=== PATIENT | female | born 1980 | race Caucasian/White ===

== ENCOUNTER 2022-04-09 10:30 | Outpatient (CLI) | payer OTHER, SELFPAY ==
[2022-04-09 19:25] LABS: Basophils Percent Auto 0.3 % (0.2-1.2); Eosinophils Absolute Auto 0.1 K/mm3 (0-0.3); Hematocrit 40.8 % (37.0-47.0); Hemoglobin 13.1 g/dL (12.0-15.0); Immature Granulocyte Absolute 0.02 K/mm3 (0.00-0.031); Immature Granulocyte Percent A 0.3 % (0-0.5); Lymphocytes Absolute Auto 1.64 K/mm3 (0.9-3.2); Lymphocytes Percent Auto 21.1 % (18.3-44.2); Mean Corpuscular HGB Conc 32.1 g/dl (32-36); Mean Corpuscular Hemoglobin 28.5 pg (26-34); Mean Corpuscular Volume 88.7 fl (80-100); Mean Platelet Volume 9.9 fl (7.4-10.4); Monocytes Absolute Auto 0.4 K/mm3 (0.1-0.6); Monocytes Percent Auto 5.1 % (2.6-8.5); Neutrophils Absolute Auto 5.6 K/mm3 (1.3-6.7); Neutrophils Percent Auto 72.2 % (45.5-73.1); Platelet Count Result 224 k/mm3 (150-375); Red Cell Distribution Width 13.2 % (11.5-14.5); White Blood Count 7.8 K/mm3 (4.5-10.0)
[2022-04-09 19:26] LABS: Alanine Aminotransferase 15 U/L (6-35); Albumin Level 4.3 g/dL (3.5-5.1); Alkaline Phosphatase 79 U/L (38-126); Anion Gap 8 mmol/L (8-16); Aspartate Amino Transferase 21 U/L (14-36); Bilirubin,Total 0.3 mg/dL (0.2-1.3); Blood Urea Nitrogen 12 mg/dL (7-17); Calcium 9.2 mg/dL (8.4-10.2); Carbon Dioxide 22 mmol/L (22-30); Chloride 108 mmol/L (98-107); Cholesterol 234 mg/dL (0-200); Estimated Glomerular Filt Rate > 60; Glucose 104 mg/dL (65-110); HDL Direct 45 mg/dL; Potassium 4.2 mmol/L (3.4-5.0); Sodium 138 mmol/L (137-145); Triglycerides 201 mg/dL (<150)
[2022-04-09 19:32] LABS: Vitamin D 25 Hydroxy 75.1 ng/mL
[2022-04-09 19:40] LABS: LDL Cholesterol Direct 137 mg/dL
== END 2022-04-09 10:31 | disposition home or self-care (01) ==
PROVIDERS: PCP Obstetrics & Gynecology; Visit Provider Obstetrics & Gynecology
DX: Z00.00 Encounter for general adult medical examination without abnormal findings (principal)
CPT/HCPCS: 36415; 80053; 80061; 82306; 84443; 85025

== ENCOUNTER → 2022-07-20 15:14 | Outpatient (CLI) | payer OTHER, SELFPAY ==
--- NOTE | ~2022-07-20 | MM_ITS ---
EXAMINATION: MM screening shady BI w max HISTORY: Screening mammogram, family history of breast cancer in her mother. TECHNIQUE: Craniocaudal and mediolateral oblique 3-D tomosynthesis images were obtained and synthetic 2-D images were generated. CAD analysis was submitted and interpreted. COMPARISON: None, baseline BREAST PARENCHYMAL COMPOSITION: There are scattered areas of fibroglandular density. FINDINGS: RIGHT BREAST: There is focal asymmetry in the posterior third of the upper outer quadrant of the [address]. LEFT BREAST: An asymmetry is present in the middle third of the central breast just below the nipple axis 7 cm from the nipple on the mediolateral oblique view. IMPRESSION: 1. Bilateral breast findings as described above. 2. Additional mammographic views and possible breast ultrasound are recommended. BI-RADS Category 0: Incomplete: Needs additional imaging evaluation. Reviewed, dictated and finalized at location A. IMPRESSION: 1. Bilateral breast findings as described above. 2. Additional mammographic views and possible breast ultrasound are recommended . BI-RADS Category 0: Incomplete: Needs additional imaging evaluation.
== END ==
PROVIDERS: PCP Nurse Practitioner; Visit Provider Obstetrics & Gynecology
DX: Z12.31 Encounter for screening mammogram for malignant neoplasm of breast (principal)
CPT/HCPCS: 77063; 77067

== ENCOUNTER → 2022-08-08 09:00 | Outpatient (CLI) | payer OTHER, SELFPAY ==
--- NOTE | ~2022-08-08 | MMUS_ITS ---
EXAMINATION: MM diagnostic shady BI w max, US breast BI limited HISTORY: Follow-up breast asymmetries TECHNIQUE: Additional 3-D tomosynthesis images of the breasts were performed and synthetic 2-D images were generated. CAD analysis was submitted and interpreted. High resolution limited bilateral breast ultrasound was performed. COMPARISON: 07/20/2022 BREAST PARENCHYMAL COMPOSITION: Breast composed of scattered areas of fibroglandular density FINDINGS: MAMMOGRAPHIC FINDINGS: The focal asymmetry in the upper outer quadrant of the right breast is less dense with spot compressi on views. No discrete mass identified. There is a 4 mm subareolar mass on medial lateral view which i s not confirmed on CC view.. ULTRASOUND: Limited right breast ultrasound: Normal heterogeneous echotexture without focal solid or cystic mass. Limited left breast ultrasound: Normal heterogeneous echotexture without focal solid or cystic mass. IMPRESSION: 1. Focal benign-appearing 4 mm mass in the left breast in the subareolar location. No sonographic cor relate is identified. This is likely benign. No evidence for malignancy in the right breast. 2. Recommend 6 month follow-up diagnostic left mammogram. BI-RADS category 3, probably benign findings. Reviewed, dictated and finalized at location A. IMPRESSION: 1. Focal benign-appearing 4 mm mass in the left breast in the subareolar locati on. No sonographic correlate is identified. This is likely benign. No evidence for malignancy in the right breast. 2. Recommend 6 month follow-up diagnostic left mammogram. BI-RADS category 3, probably benign findings.
== END ==
PROVIDERS: PCP Nurse Practitioner; Visit Provider Obstetrics & Gynecology
DX: R92.8 Other abnormal and inconclusive findings on diagnostic imaging of breast (principal); N63.42 Unspecified lump in left breast, subareolar
CPT/HCPCS: 76642; 77062; 77066; G0279

== ENCOUNTER → 2023-02-05 14:15 | Outpatient (CLI) | payer OTHER, SELFPAY ==
--- NOTE | ~2023-02-05 | MMUS_ITS ---
EXAMINATION: MM diagnostic shady LT w max, US breast LT limited HISTORY: Follow-up of 4 mm mass left subareolar area TECHNIQUE: Full-field ML, MLO and CC and spot ML 3-D tomosynthesis images of left breast were perform ed and synthetic 2-D images were generated. CAD analysis was submitted and interpreted. High resoluti on targeted lateral subareolar breast ultrasound was performed. COMPARISON: 08/08/2022 diagnostic bilateral mammogram and bilateral Limited breast ultrasound examina tion BREAST PARENCHYMAL COMPOSITION: There are scattered areas of fibroglandular density. FINDINGS: MAMMOGRAPHIC FINDINGS: Approximately 4 x 5 mm circumscribed mass is suggested in the lateral subareolar area approximately 2 .6 cm deep to the nipple (spot left MLO Tomosynthesis image 37/84). ULTRASOUND: 3:00 3 cm from nipple: Approximately 4.2 mm circumscribed hypoechoic lesion without internal vascular ity or posterior shadowing is noted. IMPRESSION: 1. Probable benign finding at 3:00 2. Six-month diagnostic left mammogram and left breast ultrasound follow-up are recommended BI-RADS category 3, probably benign findings. Reviewed, dictated and finalized at location A. IMPRESSION: 1. Probable benign finding at 3:00 2. Six-month diagnostic left mammogram and left breast ultrasound follow-up are recommended BI-RADS category 3, probably benign findings.
== END ==
PROVIDERS: PCP Obstetrics & Gynecology; Visit Provider Obstetrics & Gynecology
DX: N63.20 Unspecified lump in the left breast, unspecified quadrant (principal); R92.8 Other abnormal and inconclusive findings on diagnostic imaging of breast
CPT/HCPCS: 76642; 77061; 77065; G0279

== ENCOUNTER → 2023-09-10 14:27 | Outpatient (CLI) | payer OTHER, SELFPAY ==
--- NOTE | ~2023-09-10 | MMUS_ITS ---
EXAMINATION: MM diagnostic shady BI w max, US breast BI limited HISTORY: Six-month follow-up for probably benign left breast mass TECHNIQUE: Craniocaudal, mediolateral, and mediolateral oblique 3-D tomosynthesis images of the lang ts were performed and synthetic 2-D images were generated. CAD analysis was submitted and interpreted . High resolution limited bilateral breast ultrasound was performed. COMPARISON: 02/05/2023, 08/08/2022, 07/20/2022 BREAST PARENCHYMAL COMPOSITION: There are scattered areas of fibroglandular density. FINDINGS: MAMMOGRAPHIC FINDINGS: Left breast: There is a 6 mm oval, equal density, obscured mass in the anterior third of the breast i n line with the nipple axis, 2 cm deep to the nipple. No suspicious calcification or architectural di stortion are identified. Right breast: There is stable focal asymmetry in the upper outer quadrant of the right breast. An asy mmetry is present in the anterior third of the lower breast at the 8:00 location, 6 cm from the nippl e. ULTRASOUND: Left breast: There is a stable 6 mm x 2 mm oval, circumscribed, parallel, hypoechoic mass with no pos terior features or internal vascularity at the 3:00 location, 3 cm from the nipple. Right breast: No sonographic correlate is identified for the asymmetry in the lower-outer breast. IMPRESSION: 1. Probably benign left breast mass and right breast asymmetry as detailed above. 2. Recommend 6 month follow-up bilateral diagnostic mammogram and ultrasound. BI-RADS category 3, probably benign findings. Reviewed, dictated and finalized at location A. APPLICATION ARCHITECT IMPRESSION: 1. Probably benign left breast mass and right breast asymmetry as detailed abov e. 2. Recommend 6 month follow-up bilateral diagnostic mammogram and ultrasound. BI-RADS category 3, probably benign findings.
== END ==
PROVIDERS: PCP Obstetrics & Gynecology; Visit Provider Obstetrics & Gynecology
DX: R92.8 Other abnormal and inconclusive findings on diagnostic imaging of breast (principal); Z80.9 Family history of malignant neoplasm, unspecified
CPT/HCPCS: 76642; 77062; 77066; G0279

== ENCOUNTER 2024-03-03 14:24 | Outpatient (CLI) | payer OTHER, SELFPAY ==
--- NOTE | ~2024-03-03 | MM_ITS ---
EXAMINATION: MM diagnostic [facility] BI w max HISTORY: Probably benign left breast mass right breast asymmetry reported on 09/10/2023 screening shady mogram examination TECHNIQUE: ML, MLO and CC full field and spot left MLO right CC 3-D tomosynthesis images were perform ed and synthetic 2-D images were generated. CAD analysis was submitted and interpreted. COMPARISON: Mammogram and ultrasound examinations dating back to 07/20/2022 bilateral screening mammog [facility] BREAST PARENCHYMAL COMPOSITION: There are scattered areas of fibroglandular density. FINDINGS: No suspicious mass or architectural distortion, malignant calcification, skin thickening or retraction or significant new or developing density is detected. IMPRESSION: 1. No mammographic evidence of malignancy or significant change since 07/20/2022 2. Routine annual mammographic screening is recommended. BI-RADS Category 1: Negative Reviewed, dictated and finalized at location B.
== END 2024-03-03 14:25 ==
PROVIDERS: PCP Obstetrics & Gynecology; Visit Provider Obstetrics & Gynecology
DX: R92.8 Other abnormal and inconclusive findings on diagnostic imaging of breast (principal)
CPT/HCPCS: 77062; 77066; G0279

== ENCOUNTER 2025-07-01 07:56 | Outpatient (CLI) | payer BC, OTHER, SELFPAY ==
--- NOTE | ~2025-07-01 | MR_ITS ---
EXAMINATION: MR brain/brain stem wo/w con DATE: 07/01/2025 08:33 INDICATION: Headache TECHNIQUE: Magnetic resonance imaging (MRI) of the brain and brainstem was performed without and with 17 mL Multihance intravenous contrast. Sequences included sagittal and axial T1-weighted SE, axial diffusion-weighted FS SE, axial 3D SWAN, axial T2-weighted FLAIR, and axial T2-weighted FSE. Postcontrast axial and coronal T1-weighted SE was obtained. Apparent diffusion coefficient (ADC) maps were created. COMPARISON: Head CT dated 10/01/2014 FINDINGS: There are no areas of restricted diffusion to suggest acute infarction. No intracranial hemorrhage or abnormal intracranial mass lesion. There are approximately 20 small foci of nonspecific increased T2-weighted signal intensity in the cerebral white matter, primarily in the bilateral frontal lobes, which is disproportionate for age. There are no intraparenchymal signal abnormalities seen on the other pulse sequences. The ventricles are symmetric and normal in size. There are no abnormal extra-axial fluid collections. Flow voids are seen in the cerebral arteries on the T2-weighted sequences consistent with their expected patency. Mild mucosal thickening at the bilateral ethmoid sinuses. Visualized orbits and soft tissues are unremarkable. There are no areas of abnormal enhancement on the post contrast images. IMPRESSION: 1. There are multiple scattered small foci of nonspecific cerebral white matter T2 hyperintensity which is disproportionate for age. The differential diagnosis includes premature chronic small vessel ischemic disease (especially if the patient has cardiovascular risk factors), demyelinating disease such as multiple sclerosis, acute disseminated encephalomyelitis (ADEM)or CADASIL, migraines, drug abuse, vasculitis, or reactive astrocytosis (gliosis) secondary to nonspecific etiology. Reviewed, dictated and finalized at location A. IMPRESSION: 1. There are multiple scattered small foci of nonspecific cerebral white matter T2 hyperintensity which is disproportionate for age. The differential diagnosi s includes premature chronic small vessel ischemic disease (especially if the p atient has cardiovascular risk factors), demyelinating disease such as multiple sclerosis, acute disseminated encephalomyelitis (ADEM)or CADASIL, migraines, drug abuse, vasculitis, or reactive astrocytosis (gliosis) secondary to nonspec ific etiology.
--- OUTSIDE RECORDS SUMMARY | 2025-07-01 08:02 | XMS_ITS | Clinical Summary ---
Author Organization [facility] Address [address] [place] [address] Care Team Providers Care Art Model Name Role Phone Sandhya Rodriguez Primary Care Provider [phone] Source Comments [facility],non-owned Affiliates and Associated Physician Practices is amultiple site organization consisting of ambulatory clinics and hospital sitesin [place], [place], [place] and [place]. This disclosure is being madepursuant to the Care Everywhere program and may not contain all information available regarding this patient. Last updated 18.[facility] Allergies No known active allergies Medications * Be aware that medications may not be up to date on this document. Alwaysverify current medications with the patient. levonorgestrel-e thinyl estradiol (JOLESSA) tablet Take 1 tablet by mouth once daily Active Encounters Date Type Department Care Team Description 06/08/2025 Travel from Last 3 Months Immunizations Immunization Administration Dates Next Due TDAP (7yrs+) 02/14/2017 Social History Tobacco Use Types Packs/Day Years Used Date Smoking Tobacco: Never Smokeless Tobacco: Never Comments Unknown Sex and Gender Information Value Date Recorded Sex Assigned at Not on file Legal Sex Female 9:41 AM CDT Gender Identity Not on file Sexual Orientation Not on file Last Filed Vital Signs Vital Sign Reading Time Taken Comments Blood Pressure 98/60 11/17/2017 10:20 AM [facility] Pulse 86 11/17/2017 10:20 AM [facility] Temperature 36.7 C (98.1 F) 11/17/2017 10:20 AM [facility] Respiratory Rate 16 11/17/2017 10:20 AM [facility] Oxygen Saturation 97% 11/17/2017 10:20 AM [facility] Inhaled Oxygen Concentration - - Weight 81.6 kg (180 lb) 11/17/2017 10:20 AM [facility] Height 182.9 cm (6') 11/17/2017 10:20 AM [facility] Body Mass Index 24.41 11/17/2017 10:20 AM [facility] Plan of Treatment Upcoming Encounters Date Type Department Care Team (Late st Contact Info) Description 07/26/2025 9:00 AM CDT Office Visit [facility] - Neurology [address] [place] [id number] Michele Khan, [employer]WORK[employer] COMPENSATION ADJUSTER [address] [place] [address] [place] [address] Health Maintenance Due Date Last Done Comments LIPID TESTING 1982 MAMMOGRAM 1982 HIV SCREENING 1997 HEPATITIS C SCREENING 04/26/2000 HEPATITIS B VACCINE (1 of 3 - 19+ 3-dose series) 2001 PAP SMEAR 2003 HPV VACCINE (1 - 3-dose SCDM series) 2009 COVID-19 VACCINE (2023-2 5 season) 2024 DEPRESSION SCREENING 10/28/2024 INFLUENZA VACCINE (#1) 2025 DTAP/TDAP/TD VACCINES (2 - T d or Tdap) 02/14/2027 02/14/2017 ZOSTER VACCINE (1 of 2) 2032 HIB VACCINE Aged Out No longer eligi ble based on patient's age to complete this topic MENINGOCOCCAL (Group B) VACC INE SHARED DECISION-MAKING Aged Out No longer eligibl e based on patient's age to complete this topic MENINGOCOCCAL GROUPS A/C/Y/W VACCINE Aged Out No longer eligible b ased on patient's age to complete this topic PNEUMOCOCCAL VACCINE Aged Out No long er eligible based on patient's age to complete this [place] [address] [employer] [facility] Care Teams Art Model Relationship Specialty Start Date End Date Sandhya Rodriguez [address] [place] [phone] PCP - General 06/08/25
--- OUTSIDE RECORDS SUMMARY | 2025-07-01 08:02 | XMS_ITS | Patient Health Record ---
Author Organization [facility] Address [address] [place] [address] Care Team Providers Care Automotive Mechanical Engineer Name Role Phone Jennifer BUCKLEY, Shanthi Primary Care Provider UnavailReal Terrazas Unavailable [phone] Allergies No Known Allergies Reason For Referral No Information Medications Medication SIG (Take, Route, Frequency, Duration) Notes Start Date End Date Status Multivitamin Adults Tablet Oral 01/29/2024 Active Ubrelvy 100 MG Tablet Oral *Reorder f rom Medispan for eRx and Interaction Alerts* 01/29/2024 Active SLYND 4 MG (28) TABLET *Reorder from Medispan for eRx and Interaction Alerts* 01/29/2024 Active Sertraline HCl 100 MG Tablet 1 tablet Orally Once a day; Duration: 90 days Active buPROPion HCl ER (XL) 300 MG Tablet Extended Release 24 Hour 1 tablet in the morning Oral Once a day; Duration: 90 days Active Immunizations Vaccine Route Administration Date Status Comme nts Influenza, injectable, MDCK, preservative free Unknown 09/09/2019 Administered Influenza, quadrivalent, spl it virus Unknown 09/09/2019 Administered Pfizer Biontech Covid-19 Vac cine 2nd dose Unknown 12/24/2020 Administered Pfizer Biontech Covid-19 Vac cine 2nd dose Unknown 01/14/2021 Administered Tdap Unknown 02/14/2017 Administered Social History Tobacco Use: Social History Observation Description Date Details (start date - stop date) Never Smoker NA - NA Sex Assigned At : Social History Observation Description Sex Assigned At Female Social History Miscellaneous: Social Info Question Answer Notes Advance Care Planning Are you your own decision-maker Yes Do you have Power of Shotblast Operator for Health or [facility]? No Tobacco Use: Social Info Question Answer Notes Tobacco Control (Standard) Tobacco use: Nonsmoker Additional Details Category Social Info Options Details Migrated Social History Migrated Social History Alcohol Intake: Occasional 08/30/2020,Tobacco Years: Never smoker 08/30/2020,Smoking Status: 0 07/30/2023 Problems Problem Type SNOMED Code ICD Code Onset Dates Problem Status W/U Status Risk Notes Problem Mild recurrent major depression (22877486) Major depressive disorder, recurrent, mild (F33.0) Active confirmed Problem Generalized anxiety disorder (09483089) Generalized anxiety disorder (F41.1) Active confirmed Vital Signs Heart Rate 66 /min 03/09/2025 Height-cm 182.88 cm 03/09/2025 Blood pressure diastolic 76 mm Hg 03/09/2025 Weight-kg 84.82 kg 03/09/2025 Height 72.00 in 03/09/2025 Blood pressure systolic 110 mm Hg 03/09/2025 Weight 187 lbs 03/09/2025 BMI 25.36 kg/m2 03/09/2025 Encounters Encounter Location Date Provider Diagnosis [facility] [employer] [place] [address] [facility] [address] [place] [address] 07/30/2024 Real Sánchez Generalized anxiety disorder F41.1 and Major depressive disorder, recurrent, mild F33.0 [facility] [employer] [place] [address] [address] 08/28/2024 Real Sánchez Generalized anxiety disorder F41.1 and Major depressive disorder, recurrent, mild F33.0 [facility] [employer] [place] [address] [address] 11/30/2024 Real Sánchez Generalized anxiety disorder F41.1 and Major depressive disorder, recurrent, mild F33.0 [facility] [employer] [place] [address] [facility] [address] [place] [address] 03/09/2025 Real Sánchez Negative depression screening Z13.31 ; Encounter for screening for cardiovascular disorders Z13.6 ; Generalized anxiety disorder F41.1 and Major depressive disorder, recurrent, mild F33.0 Assessments Encounter Date Diagnosis (ICD Code) Assessment Notes Treatment Notes Treatment Clinical Notes Section Notes 07/30/2024 Major depressive disorder, recurrent, mild (ICD-10 - F33.0) 1. Depression: - Patient reports no significant depressive symptoms at this time. Plan: - Continue bupropion XL 300mg daily. 2. Anxiety and irritability: - Patient reports ongoing anxiety symptoms and increased irritability, affecting both work and home life. Plan: - Discontinue escitalopram 20mg with a tapering schedule: 10mg daily for one week, then 5mg daily for one week, and then stop. - Initiate sertraline with a titration schedule: 25mg daily for one week, then 50mg daily for one week, and then 100mg daily. - Encourage patient to continue attending therapy sessions and utilizing relaxation techniques as recommended by their therapist. 3. Sleep disturbances and night sweats: - Patient reports ongoing night sweats and sleep disturbances. Plan: - Monitor for improvement with the change in medication (sertraline) and address further in follow-up visit if needed. 4. Follow-up: - Schedule a follow-up appointment in one month to assess the patient's response to sertraline and evaluate any changes in anxiety, irritability, and sleep disturbances. 07/30/2024 Generalized anxiety disorder (ICD-10 - F41.1) 1. Depression: - Patient reports no significant depressive symptoms at this time. Plan: - Continue bupropion XL 300mg daily. 2. Anxiety and irritability: - Patient reports ongoing anxiety symptoms and increased irritability, affecting both work and home life. Plan: - Discontinue escitalopram 20mg with a tapering schedule: 10mg daily for one week, then 5mg daily for one week, and then stop. - Initiate sertraline with a titration schedule: 25mg daily for one week, then 50mg daily for one week, and then 100mg daily. - Encourage patient to continue attending therapy sessions and utilizing relaxation techniques as recommended by their therapist. 3. Sleep disturbances and night sweats: - Patient reports ongoing night sweats and sleep disturbances. Plan: - Monitor for improvement with the change in medication (sertraline) and address further in follow-up visit if needed. 4. Follow-up: - Schedule a follow-up appointment in one month to assess the patient's response to sertraline and evaluate any changes in anxiety, irritability, and sleep disturbances. 08/28/2024 Generalized anxiety disorder (ICD-10 - F41.1) 1. Anxiety and irritability: - Patient reports improvement in anxiety and irritability since starting sertraline and tapering off escitalopram. - Mentions situational stressors related to the election. Plan: - Continue sertraline 100 mg daily. - Encourage patient to engage in stress-reducing activities. - Consider therapy if needed. - Reassess anxiety and irritability in 3 months or sooner if symptoms worsen. 2. Sleep disturbances and fatigue: - Patient reports feeling tired all the time but attributes it to work, personal life, and parenting responsibilitie s. - Sleep is reported as fine. Plan: - Continue to monitor sleep quality and fatigue. - Encourage patient to practice good sleep hygiene. - Consider stress management techniques to address potential contributors to fatigue. - Reevaluate in 3 months or sooner if sleep disturbances worsen. 3. Night sweats: - Patient reports that night sweats are about the same, with some worsening during warmer nights. Plan: - Continue to monitor night sweats. - Encourage patient to maintain a cool and comfortable sleeping environment. - Reassess in 3 months or sooner if night sweats worsen or become more frequent. 4. Medication management: - Patient is currently on sertraline 100 mg daily and bupropion 300 mg daily. - Reports positive experiences with sertraline in the past. Plan: - Continue sertraline 100 mg daily and bupropion 300 mg daily. - Refill medications. - Schedule a follow-up appointment in 3 months to reassess medication effectiveness and address any concerns. Follow-up: - Schedule a follow-up appointment in 3 months. - Encourage patient to reach out if she experiences any new or worsening symptoms or has concerns about her medications. 11/30/2024 Generalized anxiety disorder (ICD-10 - F41.1) 03/09/2025 Negative depression screening (ICD-10 - Z13.31) 03/09/2025 Encounter for screening for cardiovascular disorders (ICD-10 - Z13.6) 11/30/2024 Major depressive disorder, recurrent, mild (ICD-10 - F33.0) 08/28/2024 Major depressive disorder, recurrent, mild (ICD-10 - F33.0) 1. Anxiety and irritability: - Patient reports improvement in anxiety and irritability since starting sertraline and tapering off escitalopram. - Mentions situational stressors related to the election. Plan: - Continue sertraline 100 mg daily. - Encourage patient to engage in stress-reducing activities. - Consider therapy if needed. - Reassess anxiety and irritability in 3 months or sooner if symptoms worsen. 2. Sleep disturbances and fatigue: - Patient reports feeling tired all the time but attributes it to work, personal life, and parenting responsibilitie s. - Sleep is reported as fine. Plan: - Continue to monitor sleep quality and fatigue. - Encourage patient to practice good sleep hygiene. - Consider stress management techniques to address potential contributors to fatigue. - Reevaluate in 3 months or sooner if sleep disturbances worsen. 3. Night sweats: - Patient reports that night sweats are about the same, with some worsening during warmer nights. Plan: - Continue to monitor night sweats. - Encourage patient to maintain a cool and comfortable sleeping environment. - Reassess in 3 months or sooner if night sweats worsen or become more frequent. 4. Medication management: - Patient is currently on sertraline 100 mg daily and bupropion 300 mg daily. - Reports positive experiences with sertraline in the past. Plan: - Continue sertraline 100 mg daily and bupropion 300 mg daily. - Refill medications. - Schedule a follow-up appointment in 3 months to reassess medication effectiveness and address any concerns. Follow-up: - Schedule a follow-up appointment in 3 months. - Encourage patient to reach out if she experiences any new or worsening symptoms or has concerns about her medications. 03/09/2025 Generalized anxiety disorder (ICD-10 - F41.1) 03/09/2025 Major depressive disorder, recurrent, mild (ICD-10 - F33.0) 11/30/2024 Other 1. Anxiety: - Patient reports experiencing anxiety and having a couple of meltdowns. - Anxiety is manageable and not interfering with daily activities, especially when occupied with work. - Currently on Sertraline 100 mg once a day. Plan: - Continue Sertraline 100 mg once a day for anxiety management. - Monitor patient's anxiety levels and consider adjusting medication if needed. 2. Depression: - Patient reports depression has been stable and under control. - Currently on Bupropion XL 300 mg. Plan: - Continue Bupropion XL 300 mg for depression management. 3. Sleep: - Patient reports no issues with sleep. Plan: - No intervention needed at this time. 4. Appetite: - No changes in appetite reported by the patient. Plan: - No intervention needed at this time. 5. Night sweats: - Patient did not provide information on the current status of night sweats. Plan: - Monitor and address in future visits if necessary. 6. Medication refill: Plan: - Refill Sertraline 100 mg and Bupropion XL 300 mg prescriptions for 3 months at [facility]. 7. Follow-up: - Encourage patient to contact the provider if any changes occur or if adjustments to the treatment plan are needed. 03/09/2025 Duke Barbour, a patient with a history of anxiety and mood issues, presents for follow-up on her current medication regimen of sertraline and bupropion. Anxiety and Mood Disorder Assessment: Patient reports stable mood and anxiety levels. She denies any significant changes or concerns since the last visit. 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 Sleep patterns are reported as normal. Current medication regimen of sertraline 100 mg daily and bupropion 300 mg daily appears to be effective in managing symptoms, with no reported side effects or concerns. Plan: - Continue sertraline 100 mg PO daily - Continue bupropion 300 mg PO daily - Follow-up appointment scheduled in 4 months - Refills to be sent to [facility] pharmacy the note is transcribed using speech recognition software. It is a reflection of a visit with the patient. It might have some inaccuracy, including medication names and transcribing errors, though efforts have been made to correct them. Plan Of Treatment Next Appt Details Provider Name:Real blanc, 07/13/2025 04:00:00 PM, [facility], [place], [address], Insurance Providers Payer Name Payer Address Payer Phone Subscriber Number Group Number Insured Name Patient Relationship to Insured Coverage Start Date Coverage End Date [employer] [address] [place] [address] [id number] MICHELLE BARBOUR Self - patient is the insured [employer] [address] [place] [address] [id number] MICHELLE BARBOUR Self - patient is the insured Medical (General) History Medical History History ICD Code Problems: Fatigue Generalized anxiety disorder Mild recurrent major depression Moderate recurrent major depression , Surgical History Surgery Date(Month/Year) Other 09/07/2011
--- OUTSIDE RECORDS SUMMARY | 2025-07-01 08:02 | XMS_ITS | Clinical Summary ---
Author Organization [address] Address [address] [place] [address] Care Team Providers Care Hydrometeorologist Name Role Phone No, Physician Primary Care Provider [phone] Allergies No known active allergies Medications escitalopram (LEXAPRO) 20 mg tablet Take 20 mg by mouth daily 09/22/2021 Active buPROPion XL (WELLBUTRIN XL) 300 mg 24 hr tablet Take 300 mg by mouth every morning 09/11/2021 Active Active Problems No known active problems Social History Tobacco Use Types Packs/Day Years Used Date Smoking Tobacco: Never Assessed Comments Unknown Sex and Gender Information Value Date Recorded Sex Assigned at Not on file Legal Sex Female 9:38 PM BULB GROWER Gender Identity Not on file Sexual Orientation Not on file Obstetrics History Last Filed Vital Signs Vital Sign Reading Time Taken Comments Blood Pressure 117/79 11/21/2021 5:10 PM BULB GROWER Pulse 66 11/21/2021 5:10 PM BULB GROWER Temperature 36.8 C (98.3 F) 11/21/2021 5:10 PM BULB GROWER Respiratory Rate 16 11/21/2021 5:10 PM BULB GROWER Oxygen Saturation 100% 11/21/2021 5:10 PM BULB GROWER Inhaled Oxygen Concentration - - Weight 88.5 kg (195 lb) 11/21/2021 5:10 PM BULB GROWER Height 182.9 cm (6') 11/21/2021 5:10 PM BULB GROWER Body Mass Index 26.45 11/21/2021 5:10 PM BULB GROWER Plan of Treatment Not on file Insurance [employer] [place] [address] [address] [place] [address] Member Subscriber Plan / Payer ( fective 2021-Present) Name:Rosemarie Camacho Member ID:[id number] Relation to Subscriber:Self Name:Rosemarie Camacho Subscriber ID:[id number] Payer ID:[id number] Type:[employer] HMO/PPO Address: [address] Member Subscriber Plan / Payer ( fective 2021-Present) Name:Rosemarie Camacho Member ID:[id number] Relation to Subscriber:Self Name:Rosemarie Camacho Subscriber ID:[id number] Payer ID:[id number] Type:[employer] HMO/PPO Address: [address] Care Teams Hydrometeorologist Relationship Specialty Start Date End Date No, Physician PCP - General 11/21/21
--- OUTSIDE RECORDS SUMMARY | 2025-07-01 08:03 | XMS_ITS | Clinical Summary ---
Author Organization [facility] Address [address] [place] [address] Phone Care Team Providers Care Aquatics Director Name Role Phone Jesus Hoffman MD Primary Care Provider [phone] Social History Tobacco Use Types Packs/Day Years Used Date Smoking Tobacco: Never Assessed Comments Unknown Sex and Gender Information Value Date Recorded Sex Assigned at Not on file Legal Sex Female 3:51 PM CDT Gender Identity Not on file Sexual Orientation Not on file Plan of Treatment Health Maintenance Due Date Last Done Comments DTAP/TDAP/TD VACCINES (1 - Tdap) 2001 HEPATITIS B VACCINES (1 of 3 - 19+ 3-dose series) 02/2001 HPV/Cotest (21-29) 2003 HPV VACCINES (1 - 3-dose SCDM series) 2009 CERVICAL CANCER SCREENING 2012 HPV/Cotest (30-65) 2012 PAP SMEAR 2012 BREAST CANCER SCREENING 2022 INFLUENZA VACCINE (#1) 2025 Insurance [employer] OPEN ACCESS RX [facility] Care Teams Aquatics Director Relationship Specialty Start Date End Date Jesus Hoffman MD [address] [place] [address] PCP - General Family Practice 08/23/16
== END 2025-07-01 07:57 | disposition home or self-care (01) ==
PROVIDERS: PCP Internal Medicine; Visit Provider Nurse Practitioner
DX: G43.009 Migraine without aura, not intractable, without status migrainosus (principal)
CPT/HCPCS: 70553; A9577

== ENCOUNTER 2025-08-12 16:04 | Outpatient (CLI) | payer BC, OTHER, SELFPAY ==
--- NOTE | ~2025-08-12 | MM_ITS ---
EXAMINATION: MM screening shady BI w max HISTORY: Screening TECHNIQUE: Craniocaudal and mediolateral oblique 3-D tomosynthesis images were obtained and synthetic 2-D images were generated. CAD analysis was submitted and interpreted. COMPARISON: 09/10/2023 BREAST PARENCHYMAL COMPOSITION: The breasts are heterogeneously dense, which may obscure small masses. FINDINGS: There is no evidence of suspicious mass, calcification, or architectural distortion to suggest malignancy. There has been no suspicious interval change. IMPRESSION: 1. No mammographic evidence of malignancy. Recommend routine screening mammography in one year. BI-RADS Category 2: Benign finding(s) Reviewed, dictated and finalized at location Q. IMPRESSION: 1. No mammographic evidence of malignancy. Recommend routine screening mammogra phy in one year. BI-RADS Category 2: Benign finding(s)
--- OUTSIDE RECORDS SUMMARY | 2025-08-12 17:49 | XMS_ITS | Patient Health Record ---
Author Organization [facility] Address [address] [place] [address] Care Team Providers Care Adapted Physical Education Aide Name Role Phone Jennifer BUCKLEY, Shanthi Primary Care Provider UnavailReal Terrazas Unavailable [phone] Allergies No Known Allergies Reason For Referral No Information Medications Medication SIG (Take, Route, Frequency, Duration) Notes Start Date End Date Status Ubrelvy 100 MG Tablet Oral *Reorder f rom Medispan for eRx and Interaction Alerts* 01/29/2024 Active SLYND 4 MG (28) TABLET *Reorder from Medispan for eRx and Interaction Alerts* 01/29/2024 Active Multivitamin Adults Tablet Oral 01/29/2024 Active buPROPion HCl ER (XL) 300 MG Tablet Extended Release 24 Hour 1 tablet in the morning Oral Once a day; Duration: 90 days 07/13/2025 Active Sertraline HCl 100 MG Tablet 1 tablet Orally Once a day; Duration: 90 days 07/13/2025 Active Immunizations Vaccine Route Administration Date Status [...] decision-maker Yes Do you have Power of Log Operations Coordinator for Health or [facility]? No Tobacco Use: Social Info Question Answer Notes Tobacco Control (Standard) Tobacco use: Nonsmoker Additional Details Category Social Info Options Details Migrated Social History Migrated Social History Alcohol Intake: Occasional 08/30/2020,Tobacco Years: Never smoker 08/30/2020,Smoking Status: 0 07/30/2023 Problems Problem Type SNOMED Code ICD Code Onset Dates Problem Status W/U Status Risk Notes Problem Mild recurrent major depression (19498477) Major depressive disorder, recurrent, mild (F33.0) Active confirmed Problem Generalized anxiety disorder (02353436) Generalized anxiety disorder (F41.1) Active confirmed Vital Signs Heart Rate 68 /min 07/13/2025 Height-cm 182.88 cm 07/13/2025 Blood pressure diastolic 66 mm Hg 07/13/2025 Weight-kg 81.65 kg 07/13/2025 Height 72.00 in 07/13/2025 Blood pressure systolic 99 mm Hg 07/13/2025 Weight 180 lbs 07/13/2025 BMI 24.41 kg/m2 07/13/2025 Encounters Encounter Location Date Provider Diagnosis [facility] [address] [facility] [address] [place] [address] 08/28/2024 Real Sánchez Generalized anxiety disorder F41.1 and Major depressive disorder, recurrent, mild F33.0 [facility] [employer] [facility] [address] [address] 11/30/2024 Real Sánchez Generalized anxiety disorder F41.1 and Major depressive disorder, recurrent, mild F33.0 [facility] [employer] [place] [address] [place] [address] 03/09/2025 Real Suna Negative depression screening Z13.31 ; Encounter for screening for cardiovascular disorders Z13.6 ; Generalized anxiety disorder F41.1 and Major depressive disorder, recurrent, mild F33.0 [facility] [address] [place] [address] 07/13/2025 Real Sánchez Generalized anxiety disorder F41.1 and Major depressive disorder, recurrent, mild F33.0 Assessments Encounter Date Diagnosis (ICD Code) Assessment Notes Treatment Notes Treatment Clinical Notes Section Notes 08/28/2024 Generalized anxiety disorder (ICD-10 - F41.1) [...] 03/09/2025 Negative depression screening (ICD-10 - Z13.31) 07/13/2025 Generalized anxiety disorder (ICD-10 - F41.1) 07/13/2025 Major depressive disorder, recurrent, mild (ICD-10 - F33.0) 03/09/2025 Encounter for screening for cardiovascular disorders [...] 300 mg prescriptions for 3 months at [facility]. 7. Follow-up: - Encourage patient to [...] months - Refills to be sent to [facility] pharmacy the note is transcribed using speech recognition software. It is a reflection of a visit with the patient. It might have some inaccuracy, including medication names and transcribing errors, though efforts have been made to correct them. 07/13/2025 Duke Barbour, patient with history of depression and anxiety, presenting for follow-up visit to assess medication efficacy and symptom stability. Depression Assessment: Patient reports depression symptoms are stable on current medication regimen. No reported changes in sleep or appetite. Patient continues to see a therapist, which may be contributing to symptom management. Plan: - Continue Sertraline and Bupropion xl 300mg Anxiety Assessment: Patient reports anxiety symptoms are stable on current medication regimen. No reported side effects or concerns with medications. Plan: - Continue medications the note is transcribed using speech recognition software. It is a reflection of a visit with the patient. It might have some inaccuracy, including medication names and transcribing errors, though efforts have been made to correct them. Plan Of Treatment Next Appt Details Provider Name:Real blanc, 11/12/2025 03:45:00 PM, [address] [address], [place], [address], Insurance Providers Payer Name Payer Address Payer Phone Subscriber Number Group Number Insured Name Patient Relationship to Insured Coverage Start Date Coverage End Date [employer] [address] [place] [address] [id number] MICHELLE BARBOUR Self - patient is the insured [facility] [address] [place] [address] [id number] MICHELLE BARBOUR Self - patient is the insured Medical (General) History Medical History History ICD Code Problems: Fatigue Generalized anxiety disorder Mild recurrent major depression Moderate recurrent major depression , Surgical History Surgery Date(Month/Year) Other 09/07/2011
--- OUTSIDE RECORDS SUMMARY | 2025-08-12 17:49 | XMS_ITS | Clinical Summary ---
Author Organization [facility] Address [address] [place] [phone] Phone Care Team Providers Care Varnish Inspector Name Role Phone Jesus Hoffman MD Primary Care Provider [phone] Social History Tobacco Use Types Packs/Day Years [...] SCREENING 2022 INFLUENZA VACCINE (#1) 2025 Insurance [employer] OPEN ACCESS RX [facility] Care Teams Varnish Inspector Relationship Specialty Start Date End Date Jesus Hoffman MD [address] [place] [address] PCP - General Family Practice 08/23/16
--- OUTSIDE RECORDS SUMMARY | 2025-08-12 17:49 | XMS_ITS | Clinical Summary ---
Author Organization [address] Address [address] [place] [address] Care Team Providers Care Janitorial Tech Name Role Phone No, Physician Primary Care Provider [phone] Allergies No known active allergies Medications escitalopram [...] on file Legal Sex Female 9:38 PM STEAM TANK OPERATOR Gender Identity Not on file Sexual Orientation Not on file Obstetrics History Last Filed Vital Signs Vital Sign Reading Time Taken Comments Blood Pressure 117/79 11/21/2021 5:10 PM STEAM TANK OPERATOR Pulse 66 11/21/2021 5:10 PM STEAM TANK OPERATOR Temperature 36.8 C (98.3 F) 11/21/2021 5:10 PM STEAM TANK OPERATOR Respiratory Rate 16 11/21/2021 5:10 PM STEAM TANK OPERATOR Oxygen Saturation 100% 11/21/2021 5:10 PM STEAM TANK OPERATOR Inhaled Oxygen Concentration - - Weight 88.5 kg (195 lb) 11/21/2021 5:10 PM STEAM TANK OPERATOR Height 182.9 cm (6') 11/21/2021 5:10 PM STEAM TANK OPERATOR Body Mass Index 26.45 11/21/2021 5:10 PM STEAM TANK OPERATOR Plan of Treatment Not on file Insurance [employer] OPEN ACCESS [place] [address] Member Subscriber Plan / Payer ( fective 2021-Present) Name:Rosemarie Camacho Member ID:[id number] Relation to Subscriber:Self Name:Rosemarie Camacho Subscriber ID:[id number] Payer ID:[id number] Type:HE[employer] HMO/PPO Address: [address] Member Subscriber Plan / Payer ( fective 2021-Present) Name:Rosemarie Camacho Member ID:[id number] Relation to Subscriber:Self Name:Rosemarie Camacho Subscriber ID:[id number] Payer ID:[id number] Type:HE[employer]LINK HMO/PPO Address: [address] Care Teams Janitorial Tech Relationship Specialty Start Date End Date No, Physician PCP - General 11/21/21
--- OUTSIDE RECORDS SUMMARY | 2025-08-12 17:49 | XMS_ITS | Clinical Summary ---
Author Organization [facility] Address [address] [place] [address] Care Team Providers Care District Plant Engineer Name Role Phone Jennifer Shanthi ZARAGOZA Primary Care Provider [phone] Source Comments [facility],non-owned Affiliates and Associated Physician Practices is amultiple site organization consisting of ambulatory clinics and hospital sitesin [place], [place], [place] and [place]. This disclosure is being madepursuant to the Care Everywhere program and may not contain all information available regarding this patient. Last updated 18.[facility] Allergies No known active allergies Medications * Be aware that medications may not be up to date on this document. Alwaysverify current medications with the patient. Drospirenone (Slynd) 4 MG TABS tablet Take 1 (one) tablet by mouth once daily Active buPROPion XL 24hr (Wellbutrin-XL) 300 MG tablet Take 1 (one) tablet by mouth every morning Active sertraline (Zoloft) 100 MG tablet Take 1 (one) tablet by mouth once daily Active multivitamin daily tablet Take 1 (one) tablet by mouth daily with food Active rimegepant (Nurtec) 75 MG tabletIndication s:Chronic migraine without aura, intractable, without status migrainosus Take 75 mg by mouth once daily as needed for Migraine 8 tablet 5 5 Active Atogepant (Qulipta) 60 MG TABSIndications: Chronic migraine without aura, intractable, without status migrainosus Take 1 (one) tablet by mouth once daily 90 tablet 1 5 Active levonorgestrel-e thinyl estradiol (JOLESSA) tablet Take 1 tablet by mouth once daily 07/26/20 25 Discontinu ed(Tx Complete) Atogepant (Qulipta) 60 MG TABS 07/26/20 25 Discontinu ed(Reorder ) Active Problems Problem Noted Date Diagnosed Date Mild recurrent major depression 07/26/2025 Encounters Date Type Department Care Team Description 07/26/2025 9:00 AM CDT Office Visit [facility] - Neurology [address] [place] [address], [place] [address] Michele Khan, DOOR FRAME ASSEMBLER MACHINE-INSURANCE RISK ANALYST Chronic migraine without aura, intractable, without status migrainosus (Primary Dx) 07/26/2025 Travel 06/08/2025 Travel from Last 3 Months Immunizations Immunization Administration Dates Next Due TDAP (7yrs+) 02/14/2017 Family History Medical History Relation Name Comments None Known Father Cancer - Breast Mother Thyroid Disease Mother Relation Name Status Comments Father Alive Mother Alive Social History Tobacco Use Types Packs/Day Years Used Date Smoking Tobacco: Never Smokeless Tobacco: Never Alcohol Use Standard Drinks/Week Comments Not Currently 0 (1 standard drink = 0.6 oz pur e alcohol) Comments No Sex and Gender Information Value Date Recorded Sex Assigned at Not on file Legal Sex Female 9:41 AM CDT Gender Identity Not on file Sexual Orientation Not on file Last Filed Vital Signs Vital Sign Reading Time Taken Comments Blood Pressure 103/71 07/26/2025 8:59 AM CDT Pulse 73 07/26/2025 8:59 AM CDT Temperature 36.7 C (98.1 F) 11/17/2017 10:20 AM SOAKING PITS SUPERVISOR Respiratory Rate 16 11/17/2017 10:20 AM SOAKING PITS SUPERVISOR Oxygen Saturation 98% 07/26/2025 8:59 AM CDT Inhaled Oxygen Concentration - - Weight 82.6 kg (182 lb) 07/26/2025 8:59 AM CDT Height 182.9 cm (6') 11/17/2017 10:20 AM SOAKING PITS SUPERVISOR Body Mass Index 24.68 11/17/2017 10:20 AM SOAKING PITS SUPERVISOR Plan of Treatment Upcoming Encounters Date Type Department Care Team (Late st Contact Info) Description 01/24/2026 10:30 AM CDT Office Visit [facility] - Neurology [address] [place] [address] [place] [phone] Michele Khan, DOOR FRAME ASSEMBLER MACHINE-INSURANCE RISK ANALYST [address] [place] [phone] Health Maintenance Due Date Last Done Comments LIPID TESTING 1982 MAMMOGRAM 1982 HIV SCREENING 1997 HEPATITIS C SCREENING 04/26/2000 HEPATITIS B VACCINE (1 of 3 - 19+ 3-dose series) 2001 PAP SMEAR 2003 HPV VACCINE (1 - 3-dose SCDM series) 2009 DEPRESSION SCREENING 10/28/2024 COVID-19 VACCINE (3 - 2024-2 6 season) 2025 01/14/2021, 12/24/2020 INFLUENZA VACCINE (#1) 2025 09/09/2019 DTAP/TDAP/TD VACCINES (2 - T d or Tdap) 02/14/2027 02/14/2017 ZOSTER VACCINE (1 of 2) 2032 HIB VACCINE Aged Out No longer eligi ble based on patient's age to complete this topic MENINGOCOCCAL (Group B) VACCINE SHARED DECISION-MAKING Aged Out No longer eligible based on patient's age to complete this topic MENINGOCOCCAL GROUPS A/C/Y/W VACCINE Aged Out No longer eligible b ased on patient's age to complete this topic PNEUMOCOCCAL VACCINE Aged Out No long er eligible based on patient's age to complete [place] [address] [place] [address] [email or web address] [facility] Care Teams District Plant Engineer Relationship Specialty Start Date End Date Shanthi Rodriguez APRN-JUAN [address] [place] [address] PCP - General Nurse Practitioner 07/26/25
== END 2025-08-12 16:05 | disposition home or self-care (01) ==
PROVIDERS: PCP Internal Medicine; Visit Provider Nurse Practitioner Obstetrics & Gynecology
DX: Z12.31 Encounter for screening mammogram for malignant neoplasm of breast (principal)
CPT/HCPCS: 77063; 77067